=== PATIENT | male | born 1955 | race Caucasian/White ===

== ENCOUNTER 2018-06-28 10:03 | Outpatient (CLI) | payer BC, SELFPAY ==
[2018-06-28 13:22] LABS: TSH 0.82 uIU/mL (0.358-3.74)
== END 2018-06-28 10:23 ==
PROVIDERS: PCP Family Medicine; Visit Provider Family Medicine
DX: E03.9 Hypothyroidism, unspecified (principal)
CPT/HCPCS: 36415; 84443

== ENCOUNTER 2019-06-30 15:33 | Outpatient (CLI) | payer BC, SELFPAY ==
--- NOTE | 2019-06-30 15:20 | DI.RAD_ITS ---
EXAM: XR FOOT RT COMPLETE CLINICAL HISTORY: metatarsalgia of rt foot, M77.41. TECHNIQUE: 2D digital imaging was performed. COMPARISON: No exams were available for comparison FINDINGS: BONES: No acute fracture is present. The bones are normally mineralized. JOINTS: Mild degenerative changes are present at the 1st metatarsophalangeal joint. SOFT TISSUE: Normal. 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
== END 2019-06-30 15:53 ==
PROVIDERS: PCP Family Medicine; Visit Provider Family Medicine
DX: M77.41 Metatarsalgia, right foot (principal); M19.071 Primary osteoarthritis, right ankle and foot
CPT/HCPCS: 73630

== ENCOUNTER 2019-07-11 08:05 | Outpatient (CLI) | payer BC, SELFPAY ==
[2019-07-11 10:28] LABS: BUN 14 mg/dL (7-18); CREATININE 1.23 mg/dL (0.70-1.30); Calcium 8.7 mg/dL (8.5-10.1); Calculated LDL 165 mg/dL; Chloride 105 mmol/L (98-107); Cholesterol 252 mg/dL (50-200); Estimated GFR 59.24 (mL/min/1.73m2); Glucose 109 mg/dL (70-100); HDL Cholesterol 53 mg/dL (40-60); Potassium 4.7 mmol/L (3.5-5.1); Sodium 143 mmol/L (136-145); Triglyceride 174 mg/dL (30-150)
[2019-07-14 11:34] LABS: PSA, Screening 1.4 ng/ml (0-4.5)
== END 2019-07-11 08:25 ==
PROVIDERS: PCP Family Medicine; Visit Provider Family Medicine
DX: E78.00 Pure hypercholesterolemia, unspecified (principal); Z12.5 Encounter for screening for malignant neoplasm of prostate
CPT/HCPCS: 36415; 80048; 80061; 84153

== ENCOUNTER 2020-04-21 09:04 | Outpatient (CLI) | payer MEDICARE, SELFPAY ==
--- NOTE | 2020-04-21 15:00 | DI.RAD_ITS ---
EXAM: XR ANKLE RT COMPLETE CLINICAL HISTORY: right ankle pain, m25.571 pain rt ankle and joints of foot. TECHNIQUE: 2D digital imaging was performed. COMPARISON: No exams were available for comparison FINDINGS: BONES: No acute fracture or dislocation. JOINTS: The ankle mortise is normally aligned. SOFT TISSUE: Normal. IMPRESSION: Unremarkable radiographs of the right ankle. DATA REPOSITORY: RADIATION DOSE DELIVERED:
== END 2020-04-21 09:24 ==
PROVIDERS: PCP Family Medicine; Visit Provider Nurse Practitioner Family
DX: M25.571 Pain in right ankle and joints of right foot (principal)
CPT/HCPCS: 73610

== ENCOUNTER 2020-09-30 03:37 | Outpatient (CLI) | payer MEDICARE, SELFPAY ==
[2020-09-30 09:42] LABS: Calculated LDL 200 mg/dL (<100); Cholesterol 278 mg/dL (<200); HDL Cholesterol 46 mg/dL (40-60); TSH 0.68 uIU/mL (0.36-3.74); Triglyceride 164 mg/dL (<150)
[2020-10-01 08:35] LABS: PSA, Screening 1.2 ng/mL (0.0-4.5)
== END 2020-09-30 03:57 ==
PROVIDERS: PCP Nurse Practitioner; Visit Provider Nurse Practitioner
DX: E78.00 Pure hypercholesterolemia, unspecified (principal); E03.9 Hypothyroidism, unspecified; N40.0 Benign prostatic hyperplasia without lower urinary tract symptoms; Z12.5 Encounter for screening for malignant neoplasm of prostate
CPT/HCPCS: 36415; 80061; 84153; 84443

== ENCOUNTER 2021-03-23 02:09 | Outpatient (CLI) | payer MEDICARE, SELFPAY ==
[2021-03-23 10:11] LABS: Calculated LDL 130 mg/dL (<100); Cholesterol 202 mg/dL (<200); HDL Cholesterol 51 mg/dL (40-60); Triglyceride 109 mg/dL (<150)
== END 2021-03-23 02:10 | disposition home or self-care (01) ==
LOC: LBO 02:09
PROVIDERS: PCP Nurse Practitioner; Visit Provider Nurse Practitioner
DX: E78.00 Pure hypercholesterolemia, unspecified (principal)
CPT/HCPCS: 36415; 80061; 83036

== ENCOUNTER 2021-09-01 02:29 | Outpatient (CLI) | payer MEDICARE, SELFPAY ==
[2021-09-01 12:16] LABS: Calculated LDL 121 mg/dL (<100); Cholesterol 214 mg/dL (<200); HDL Cholesterol 50 mg/dL (40-60); TSH (W/Ref FT4) 0.59 uIU/mL (0.36-3.74); Triglyceride 217 mg/dL (<150)
[2021-09-01 18:41] LABS: PSA, Screening 1.3 ng/mL (0.0-4.5)
== END 2021-09-01 02:30 | disposition home or self-care (01) ==
LOC: LBO 02:29
PROVIDERS: PCP Nurse Practitioner; Visit Provider Nurse Practitioner
DX: E78.00 Pure hypercholesterolemia, unspecified (principal); Z12.5 Encounter for screening for malignant neoplasm of prostate
CPT/HCPCS: 36415; 80061; 84153; 84443

== ENCOUNTER 2022-02-22 04:26 | Outpatient (CLI) | payer MEDICARE, SELFPAY ==
[2022-02-22 09:31] LABS: BUN 18 mg/dL (7-18); CREATININE 1.3 mg/dL (0.70-1.30); Calcium 8.8 mg/dL (8.5-10.1); Chloride 106 mmol/L (98-107); Estimated GFR 55.06 (mL/min/1.73m2); Glucose 102 mg/dL (74-106); Potassium 4.4 mmol/L (3.5-5.1); Sodium 144 mmol/L (136-145)
== END 2022-02-22 04:27 | disposition home or self-care (01) ==
LOC: LBO 04:26
PROVIDERS: PCP Nurse Practitioner; Visit Provider Nurse Practitioner
DX: M62.838 Other muscle spasm (principal)
CPT/HCPCS: 36415; 80048

== ENCOUNTER 2022-07-27 03:48 | Outpatient (CLI) | payer MEDICARE, SELFPAY ==
[2022-07-27 12:50] LABS: ALT 25 U/L (16-63); AST 22 U/L (15-37); Albumin 3.8 g/dL (3.4-5.0); Alkaline Phosphatase 59 U/L (46-116); BUN 18 mg/dL (7-18); Bilirubin, Total 0.5 mg/dL (0.2-1.0); CREATININE 1.3 mg/dL (0.70-1.30); Calcium 8.9 mg/dL (8.5-10.1); Calculated LDL 134 mg/dL (<100); Chloride 105 mmol/L (98-107); Cholesterol 204 mg/dL (<200); Estimated GFR 60.21 (mL/min/1.73m2); Glucose 95 mg/dL (74-106); HDL Cholesterol 51 mg/dL (40-60); Potassium 4.5 mmol/L (3.5-5.1); Sodium 141 mmol/L (136-145); TSH (W/Ref FT4) 1.56 uIU/mL (0.36-3.74); Total Protein 6.8 g/dL (6.4-8.2); Triglyceride 95 mg/dL (<150)
[2022-07-27 19:07] LABS: PSA, Screening 1.8 ng/mL (<=4.5)
== END 2022-07-27 03:49 | disposition home or self-care (01) ==
LOC: LOS 03:48
PROVIDERS: PCP Nurse Practitioner Family; Visit Provider Nurse Practitioner Family
DX: E03.9 Hypothyroidism, unspecified (principal); E78.00 Pure hypercholesterolemia, unspecified; M62.838 Other muscle spasm; N40.0 Benign prostatic hyperplasia without lower urinary tract symptoms; Z12.5 Encounter for screening for malignant neoplasm of prostate
CPT/HCPCS: 36415; 80053; 80061; 84153; 84443

== ENCOUNTER 2023-09-13 02:14 | Outpatient (CLI) | payer MEDICARE, SELFPAY ==
[2023-09-13 11:01] LABS: ALT 25 U/L (16-63); AST 22 U/L (15-37); Albumin 3.8 g/dL (3.4-5.0); Alkaline Phosphatase 60 U/L (46-116); Anion Gap 7.1 mmol/L (3-11); BUN 18 mg/dL (7-18); Bilirubin, Total 0.6 mg/dL (0.2-1.0); CO2 30.9 mmol/L (21.0-32.0); CREATININE 1.4 mg/dL (0.70-1.30); Calcium 9.3 mg/dL (8.5-10.1); Calculated LDL 183 mg/dL (<100); Chloride 102 mmol/L (98-107); Cholesterol 265 mg/dL (<200); Estimated GFR 54.75 (mL/min/1.73m2); Glucose 106 mg/dL (74-106); HDL Cholesterol 54 mg/dL (40-60); Potassium 3.9 mmol/L (3.5-5.1); Sodium 140 mmol/L (136-145); TSH (W/Ref FT4) 1.71 uIU/mL (0.36-3.74); Total Protein 7.7 g/dL (6.4-8.2); Triglyceride 144 mg/dL (<150)
[2023-09-13 21:03] LABS: PSA, Screening 2.6 ng/mL (<=4.5)
== END 2023-09-13 02:15 | disposition home or self-care (01) ==
LOC: LBO 02:14
PROVIDERS: PCP Nurse Practitioner Family; Visit Provider Nurse Practitioner Family
DX: E03.9 Hypothyroidism, unspecified (principal); N40.0 Benign prostatic hyperplasia without lower urinary tract symptoms; Z12.5 Encounter for screening for malignant neoplasm of prostate; E78.00 Pure hypercholesterolemia, unspecified
CPT/HCPCS: 36415; 80053; 80061; 84153; 84443

== ENCOUNTER 2023-11-02 03:18 | Outpatient (CLI) | payer MEDICARE, SELFPAY ==
[2023-11-02 09:12] LABS: ALT 32 U/L (16-63); AST 23 U/L (15-37); Albumin 3.6 g/dL (3.4-5.0); Alkaline Phosphatase 53 U/L (46-116); Anion Gap 3.1 mmol/L (3-11); BUN 16 mg/dL (7-18); Bilirubin, Total 0.7 mg/dL (0.2-1.0); CO2 31.9 mmol/L (21.0-32.0); CREATININE 1.4 mg/dL (0.70-1.30); Calcium 9.3 mg/dL (8.5-10.1); Calculated LDL 82 mg/dL (<100); Chloride 106 mmol/L (98-107); Cholesterol 164 mg/dL (<200); Estimated GFR 54.41 (mL/min/1.73m2); Glucose 109 mg/dL (74-106); HDL Cholesterol 59 mg/dL (40-60); Potassium 4.3 mmol/L (3.5-5.1); Sodium 141 mmol/L (136-145); Total Protein 7.3 g/dL (6.4-8.2); Triglyceride 118 mg/dL (<150)
== END 2023-11-02 03:19 | disposition home or self-care (01) ==
PROVIDERS: PCP Nurse Practitioner Family; Visit Provider Nurse Practitioner Family
DX: E78.00 Pure hypercholesterolemia, unspecified (principal)
CPT/HCPCS: 36415; 80053; 80061

== ENCOUNTER → 2024-01-21 12:52 | Outpatient (BNVA) | payer MEDICARE, SELFPAY | PROVIDERS: PCP Nurse Practitioner Family; Referring Provider Nurse Practitioner Family; Visit Provider Nurse Practitioner Gerontology | DX: N40.1 Benign prostatic hyperplasia with lower urinary tract symptoms (principal); N13.8 Other obstructive and reflux uropathy; N48.6 Induration penis plastica; N52.9 Male erectile dysfunction, unspecified; Z80.42 Family history of malignant neoplasm of prostate | CPT/HCPCS: 51798; 81003; 99205 ==

== ENCOUNTER → 2024-07-08 15:28 | Outpatient (BNVA) | payer MEDICARE, SELFPAY | PROVIDERS: PCP Nurse Practitioner Family; Referring Provider Nurse Practitioner Family; Visit Provider Nurse Practitioner Gerontology | DX: N40.1 Benign prostatic hyperplasia with lower urinary tract symptoms (principal); N13.8 Other obstructive and reflux uropathy; N52.9 Male erectile dysfunction, unspecified; Z80.42 Family history of malignant neoplasm of prostate | CPT/HCPCS: 81003; 99213 ==

== ENCOUNTER 2024-08-05 02:31 | Outpatient (CLI) | payer MEDICARE, SELFPAY ==
[2024-08-05 09:58] LABS: Calculated LDL 86 mg/dL (<100); Cholesterol 168 mg/dL (<200); HDL Cholesterol 60 mg/dL (40-60); TSH (W/Ref FT4) 1.04 uIU/mL (0.36-3.74); Triglyceride 111 mg/dL (<150)
== END 2024-08-05 02:32 | disposition home or self-care (01) ==
LOC: LBO 02:32
PROVIDERS: PCP Nurse Practitioner Family; Visit Provider Nurse Practitioner Family
DX: E78.00 Pure hypercholesterolemia, unspecified (principal)
CPT/HCPCS: 36415; 80061; 84443

== ENCOUNTER → 2024-10-30 09:33 | Outpatient (BNVA) | payer MEDICARE, SELFPAY | PROVIDERS: PCP Nurse Practitioner Family; Referring Provider Nurse Practitioner Family; Visit Provider Student in an Organized Health Care Education/Training Program | DX: Z12.11 Encounter for screening for malignant neoplasm of colon (principal) ==

== ENCOUNTER 2024-11-04 00:44 | Outpatient (CLI) | payer MEDICARE, SELFPAY ==
[2024-11-04 18:47] LABS: PSA, Screening 2.7 ng/mL (<=6.5)
== END 2024-11-04 00:45 | disposition home or self-care (01) ==
PROVIDERS: PCP Nurse Practitioner Family; Visit Provider Nurse Practitioner Gerontology
DX: N40.1 Benign prostatic hyperplasia with lower urinary tract symptoms (principal); N13.8 Other obstructive and reflux uropathy; R39.9 Unspecified symptoms and signs involving the genitourinary system; Z80.42 Family history of malignant neoplasm of prostate
CPT/HCPCS: 36415; 84153

== ENCOUNTER → 2024-11-11 09:58 | Outpatient (BNVA) | payer MEDICARE, SELFPAY | PROVIDERS: PCP Nurse Practitioner Family; Visit Provider Nurse Practitioner Gerontology | DX: N48.6 Induration penis plastica (principal); N52.9 Male erectile dysfunction, unspecified; Z80.42 Family history of malignant neoplasm of prostate; N40.1 Benign prostatic hyperplasia with lower urinary tract symptoms; N13.8 Other obstructive and reflux uropathy | CPT/HCPCS: 51798; 99213 ==

== ENCOUNTER 2025-08-04 10:33 | Outpatient (CLI) | payer MEDICARE, SELFPAY ==
[2025-08-04 14:22] LABS: Hemoglobin A1C 5.8 % (<5.7)
[2025-08-04 14:26] LABS: TSH (W/Ref FT4) 0.49 uIU/mL (0.36-3.74)
[2025-08-05 11:43] LABS: Hepatitis C Ab w Rflx HCV PCR Negative (Negative)
[2025-08-05 12:15] LABS: HBs Antibody, Quant <3.1 mIU/mL (See Note); Hepatitis B Surface Ab Negative (See Note)
== END 2025-08-04 10:34 | disposition home or self-care (01) ==
LOC: LOS 10:34
PROVIDERS: PCP Nurse Practitioner Family; Visit Provider Nurse Practitioner Family
DX: R73.9 Hyperglycemia, unspecified (principal); E03.9 Hypothyroidism, unspecified; Z11.59 Encounter for screening for other viral diseases
CPT/HCPCS: 36415; 86706; 86803; 83036; 84443